=== PATIENT | male | born 1925 | race Caucasian/White ===

== ENCOUNTER 2016-05-24 15:26 | Outpatient (CLI) | payer MEDICARE, BC | END 2016-05-24 15:27 | disposition home or self-care (01) | DX: M43.8X4 Other specified deforming dorsopathies, thoracic region (principal) ==

== ENCOUNTER 2016-06-20 | Emergency (ER) | payer BC, MEDICARE | END 2016-06-20 15:00 | disposition left against medical advice (07) | DX: Z53.21 Procedure and treatment not carried out due to patient leaving prior to being seen by health care provider (principal) ==

== ENCOUNTER 2016-06-20 13:42 | Outpatient (CLI) | payer BC, MEDICARE | END 2016-06-20 13:43 | disposition home or self-care (01) | DX: M85.89 Other specified disorders of bone density and structure, multiple sites (principal); M84.48XD Pathological fracture, other site, subsequent encounter for fracture with routine healing ==

== ENCOUNTER 2016-06-21 15:27 | Outpatient (CLI) | payer BC, MEDICARE | END 2016-06-21 15:28 | disposition home or self-care (01) | DX: I77.1 Stricture of artery (principal); R06.00 Dyspnea, unspecified ==

== ENCOUNTER 2016-06-21 15:41 | Outpatient (CLI) | payer MEDICARE, BC | END 2016-06-21 15:42 | disposition home or self-care (01) | DX: R05 Cough (principal); R09.89 Other specified symptoms and signs involving the circulatory and respiratory systems ==

== ENCOUNTER 2016-08-25 13:36 | Outpatient (CLI) | payer MEDICARE, BC | END 2016-08-25 13:37 | disposition home or self-care (01) | DX: S22.070D Wedge compression fracture of T9-T10 vertebra, subsequent encounter for fracture with routine healing (principal); S22.080D Wedge compression fracture of T11-T12 vertebra, subsequent encounter for fracture with routine healing; M41.86 Other forms of scoliosis, lumbar region; M41.84 Other forms of scoliosis, thoracic region ==

== ENCOUNTER 2016-10-20 08:00 | Outpatient (CLI) | payer MEDICARE, BC ==
[2016-10-20 11:02] LABS: BASOPHILS % (AUTO) 0.2 %; EOSINOPHILS # (AUTO) 0.2 10^3/uL (0.0-0.7); EOSINOPHILS % (AUTO) 5.4 %; HCT - HEMATOCRIT 42.7 % (42.0-52.0); HGB - HEMOGLOBIN 14.6 g/dL (14.0-18.0); LYMPHOCYTES # (AUTO) 1.4 10^3/uL (1.5-3.5); LYMPHOCYTES % (AUTO) 33.8 %; MEAN CORPUSCULAR HGB CONC 34.1 g/dL (32.0-36.0); MEAN CORPUSCULAR VOLUME 93.7 fL (80.0-94.0); MEAN PLATELET VOLUME 6.8 fL (7.4-11.4); MONOCYTES # (AUTO) 0.5 10^3/uL (0.0-1.0); MONOCYTES % (AUTO) 11.7 %; NEUTROPHILS # (AUTO) 2.1 10^3/uL (1.5-6.6); NEUTROPHILS % (AUTO) 48.9 %; RED BLOOD COUNT 4.56 10^6/uL (4.70-6.10); RED CELL DISTRIBUTION WIDTH 13.7 % (12.0-15.0); UNCORRECTED WHITE BLOOD COUNT 4.3 x10^3/uL; WHITE BLOOD COUNT 4.3 x10^3/uL (4.8-10.8)
[2016-10-20 11:24] LABS: ALBUMIN/GLOBULIN RATIO 1.4 (1.0-2.2); BILIRUBIN,TOTAL 1.1 mg/dL (0.2-1.0); BUN - BLOOD UREA NITROGEN 20 mg/dL (6-20); CALCIUM 9.2 mg/dL (8.5-10.3); CARBON DIOXIDE - CO2 27 mmol/L (21-32); CHLORIDE 107 mmol/L (101-111); CHOL/HDL RATIO 3.2 (<5.0); CHOLESTEROL 189 mg/dL; CREATININE 0.8 mg/dL (0.6-1.2); GFR - MDRD 91 (>89); GLUCOSE 86 mg/dL (70-100); HDL CHOLESTEROL 60 mg/dL; LDL/HDL RATIO 1.8 (<3.6); POTASSIUM 3.7 mmol/L (3.5-5.0); SODIUM 140 mmol/L (135-145); TOTAL PROTEIN 6.6 g/dL (6.7-8.2); TRIGLYCERIDES 97 mg/dL; VLDL CHOLESTEROL 19 mg/dL
== END 2016-10-20 08:01 | disposition home or self-care (01) ==
LOC: LAB.R 08:00
PROVIDERS: ATTEND Physician Assistant Medical
DX: C61 Malignant neoplasm of prostate (principal); I10 Essential (primary) hypertension; K21.9 Gastro-esophageal reflux disease without esophagitis; S22.002 Unstable burst fracture of unspecified thoracic vertebra; Z79.899 Other long term (current) drug therapy
CPT/HCPCS: 80053; 80061; 82306; 84153; 85025

== ENCOUNTER 2016-10-27 14:22 | Outpatient (CLI) | payer MEDICARE, BC ==
--- NOTE | 2016-10-27 17:28 | XRAY Report ---
TWO VIEW THORACIC SPINE: 10/27/2016 CLINICAL INDICATION: Compression fracture followup. COMPARISON: 08/25/2016 Frontal and lateral views of the thoracic spine demonstrate stable compression deformities of T9 thro ugh T12. No new compression fracture is identified. Mild dextroscoliosis is stable. IMPRESSION: STABLE COMPRESSION FRACTURES OF T9 THROUGH T12. NO SIGNIFICANT INTERVAL CHANGE. JOB #: [id number] JOB #:[id number]
== END 2016-10-27 14:23 | disposition home or self-care (01) ==
LOC: DI 14:22
PROVIDERS: ATTEND Physician Assistant Medical
DX: M48.54XD Collapsed vertebra, not elsewhere classified, thoracic region, subsequent encounter for fracture with routine healing (principal)
CPT/HCPCS: 72070